=== PATIENT | female | born 1995 | race Caucasian/White ===

== ENCOUNTER 2017-03-12 15:03 | Emergency (ER) | payer OTHER ==
[~2017-03-12] VITALS: Ht 175.3 cm; Wt 97.5 kg
--- NOTE | ~2017-03-12 | US61 ---
[facility] A Service of [facility] & [facility] RADIOLOGY TEXT RESULTS PATIENT: JESSIE LANTIGUA LOCATION: CFTX : [birth year] UNIT #: [id number] AGE: [address]: Kylee Conner SEX: F ORDER DR: [id number] [facility] [address] [place], [place] [address] [id number] MR#: [id number] Acc #: [id number] NAME: JESSIE LANTIGUA : 1995 SEX: F STUDY DATE/TIME: 03/12/2017 17:49 UNIT: CFTX ROOM: STUDY DESCRIPTION: US /Mat <14Wk / Attending Physician: Kylee Conner P.A.-C. Ordering Physician: Kylee Conner P.A.-C. Primary Care Physician: Primary Care Physician No MEDICAL IMAGING REPORT This report is preliminary unless electronic signature is present EXAM Transvaginal pelvic ultrasound 03/12/2017 HISTORY 22-year-old female with left adnexal pain for 8 days. Nausea, vomiting. COMPARISON None. FINDINGS Transvaginal scanning of the pelvis demonstrates twin living intrauterine gestations. Fetus 1 estimated at 8 weeks 1 day by crown-rump length. cardiac motion identified at 175 beats per minute. Fetus 2 estimated at 7 weeks 6 days by crown-rump length. cardiac motion identified at 168 beats per minute. No subchorionic fluid collections. Uterus otherwise within normal limits. The right ovary is normal and measures 3 x 3.1 x 1.9 cm. Normal vascular flow in the right ovary. Left ovary is normal and measures 2.2 x 2.7 x 1.7 cm. Normal vascular flow in the left ovary. No significant free pelvic fluid. IMPRESSION 1. Twin living intrauterine gestations estimated at 8 weeks 1 day and 7 weeks 6 days by crown-rump length. cardiac motion identified at 175 beats per minute and 168 beats per minute. 2. Both ovaries are within normal limits. Dictated by... Mykel Farrell M.D. THIS IS AN ELECTRONICALLY VERIFIED REPORT [facility] A Service of [facility] & [facility] RADIOLOGY TEXT RESULTS PATIENT: JESSIE LANTIGUA LOCATION: [facility] : [birth year] UNIT #: [id number] AGE: [address]: Kylee Conner SEX: F ORDER DR: Mykel Farrell M.D. at 03/13/2017 10:42 AM Finn TD: 03/13/2017 09:54 JOB #: [id number] MEDICAL IMAGING REPORT Page 1 of 1 COPY
[~2017-03-12 15:03] MED LIST: KEFLEX500 M2 PO; NO MEDICATIONS; PYRIDIUM100 MG PO
[2017-03-12 16:32] LABS: BASOPHIL% 0.2 % (0-2.5); HEMOGLOBIN 14.5 gm/dL (12.0-16.0); LYMPHOCYTE% 6.5 % (17.0-45.0); MEAN CELL VOLUME 81.4 FL (83-96); MEAN CORPUSCULAR HEMOGLOBIN 28.1 PG (28-34); MEAN CORPUSCULAR HGB CONC 34.5 g/dL (30-36); MEAN PLATELET VOLUME 7.9 FL (6.5-11.5); MONOCYTE# 0.9 X10e3 (0-1.0); MONOCYTE% 5.7 % (3.0-12.0); NEUTROPHIL# 13.4 X10e3 (1.5-7.1); NEUTROPHIL% 87.6 % (40-75); PLATELET COUNT 263 X10e3 (140-420); RED BLOOD COUNT 5.15 X10e (3.90-5.30); RED CELL DISTRIBUTION WIDTH 12.8 % (11.0-15.5); WHITE BLOOD COUNT 15.3 X10e3 (4.0-10.5)
[2017-03-12 16:33] LABS: DIFF IND YES
[2017-03-12 16:51] LABS: BUN/CREATININE RATIO 16.66; CALCIUM SERUM 9.6 mg/dL (8.4-10.2); CREATININE SERUM 0.6 mg/dL (0.6-1.4); GLOM FILT RATE Estimated 130.3 mL/min (>60); POTASSIUM 3.3 mmol/L (3.5-5.1)
[2017-03-12 17:18] LABS: ANISOCYTOSIS SL; PLATELET ESTIMATE NORMAL (NORMAL)
[2017-03-12 19:31] LABS: URINE SOURCE CLEAN CATCH
[2017-03-12 19:38] LABS: URINE APPEARANCE CLEAR; URINE BLOOD NEG (NEG); URINE COLOR DK YELLOW; URINE GLUCOSE NEG (NEG); URINE KETONE 3+ (NEG); URINE LEUKOCYTE ESTERASE TRACE (NEG); URINE NITRATE NEG (NEG); URINE PROTEIN 1+ (NEG); URINE SPECIFIC GRAVITY 1.026 (1.003-1.035)
[2017-03-12 19:42] LABS: URBCS1 AUWI 0-2 /[HPF] (0-2); URINE BACTERIA AUWI NEG (NEGATIVE); URINE SQUAMOUS EPITHELIAL CELL OCC /[HPF]
[2017-03-12 19:43] LABS: CULTURE INDICATED? NO; URINE BILIRUBIN NEG (NEG)
== END 2017-03-12 20:45 | disposition home or self-care (01) ==
LOC: CED 15:03 → CFTX 15:03
PROVIDERS: Physician Assistant
DX: O99.281 Endocrine, nutritional and metabolic diseases complicating pregnancy, first trimester (principal); E86.0 Dehydration; E87.6 Hypokalemia; Z88.1 Allergy status to other antibiotic agents; Z88.8 Allergy status to other drugs, medicaments and biological substances; Z3A.01 Less than 8 weeks gestation of pregnancy
CPT/HCPCS: 36415; 76801; 80048; 81003; 84702; 85025; 96361; 96374; 99284; J2765